=== PATIENT | female | born 1945 | race Caucasian/White ===

== ENCOUNTER 2016-11-21 08:48 | Inpatient (IN) | payer OTHER ==
[2016-11-21] MEDS ORDERED: SODIUM CHLORIDE 1,000 ML IV STA ×2 (09:23→09:52)
[2016-11-21] MEDS ORDERED: SOLU-MEDROL 125 MG IVP STA (09:36)
[2016-11-21] MEDS ORDERED: ROCEPHIN 1 GM in SODIUM CHLORIDE 50 ML IV STA (09:37)
--- NOTE | 2016-11-21 09:42 | ED.PDOC ---
General ED Provider: Dr. NITHYA VALDES JR Chief Complaint: Respiratory Complaint Stated Complaint: complains of fever, shortness of breath, cough, sore throat, congestion[End]Two weeks Diagnosed with Type B flu 11/10 99.1 65 20 89 99/61 Tamiflu has been completed. Patient has also been treated with Mucinex[End] Had fluids this AM. Hasnt eaten since yesterday afternoon Time Seen by Physician: 09:23 Mode of Arrival: Walk-In Information Source: Patient Exam Limitations: No limitations Primary Care Provider: NELSON CONTI Nursing and Triage Documentation Reviewed and Agree: No Review of Systems - Review Of Systems Constitutional: Reports: Fever, Malaise, Weakness Ears, Nose, Mouth, Throat: Reports: Throat pain Respiratory: Reports: Cough, Short of air, Other Cardiac: Reports: No symptoms GI: Reports: No symptoms : Reports: No symptoms Musculoskeletal: Reports: No symptoms Skin: Reports: No symptoms Neurological: Reports: No symptoms Endocrine: Reports: No symptoms Hematologic/Lymphatic: Reports: No symptoms All Other Systems: Other Past Medical History - Past Medical History Endocrine: Reports: Hypothyroid Cardiovascular: Reports: Hypertension, Other (mvp) Respiratory: Reports: None Hematological: Reports: None Gastrointestinal: Reports: None Genitourinary: Reports: None Neuro/Psych: Reports: None Musculoskeletal: Reports: Arthritis Cancer: Reports: None Last Menstrual Period: 1996 - Surgical History General Surgical History: Reports: Cholecystectomy ( [id number]) - Family History Family History: Reports: Unknown - Social History Smoking Status: Never smoker Hx Substance Use: No Alcohol Screening: None Physical Exam - Physical Exam Appearance: Ill-appearing Ill-appearing: Moderate Pain Distress: Moderate Eyes: TASHA, EOMI, Conjunctiva clear Neck: Supple Respiratory: Breath sounds equal, Breath sounds diminished, Crackles, Rhonchi Cardiovascular: RRR, Pulses normal, No rub, No murmur GI/: Soft, Nontender, No masses, Bowel sounds normal, No Organomegaly Musculoskeletal: Normal strength, ROM intact, No edema, No calf tenderness Skin: Warm, Dry, Normal color Neurological: Sensation intact, Motor intact, Reflexes intact, Cranial nerves intact, Alert, Oriented Psychiatric: Affect appropriate, Mood appropriate Interpretation - EKG Interpretation Time of EKG #1: 09:56 Rate: Chao Rhythm: Sinus Ectopy: None ST Segment: Other (lvh) Critical Care Note - Critical Care Note Total Time (mins): 5 Course - Course Hematology/Chemistry: 11/21/16 09:55 11/21/16 09:55 Orders, Labs, Meds: Lab Review 11/21/16 11/21/16 09:50 09:55 WBC 13.59 H RBC 4.02 L Hgb 11.5 L Hct 33.9 L MCV 84.3 MCH 28.6 MCHC 33.9 RDW Coeff of Aurelio 12.9 Plt Count 448 H Immature Gran % (Auto) 0.7 Neut % (Auto) 84.9 Lymph % (Auto) 9.3 L [place] % (Auto) 4.6 Eos % (Auto) 0.4 Baso % (Auto) 0.1 Immature Gran # (Auto) 0.1 Neut # 11.5 H Lymph # 1.3 [place] # 0.6 Eos # 0.1 Baso # 0.0 Puncture Site R rad O2 Saturation 94.0 L ABG pH 7.564 H* ABG pCO2 34.4 L ABG pO2 59.0 L* ABG HCO3 31.1 H ABG Total CO2 32 H ABG Base Excess 9 H Calvin Test + FiO2 % 21.0 Sodium 132 L Potassium 2.6 L* Chloride 88 L Carbon Dioxide 32 H Anion Gap 14.6 BUN 14 Creatinine 1.31 H Estimated GFR (MDRD) 40.00 BUN/Creatinine Ratio 10.68 Glucose 146 H Lactic Acid 14.1 Calcium 9.5 Total Bilirubin 0.96 AST 23 ALT 19 Alkaline Phosphatase 114 Total Creatine Kinase 158 CK-MB (CK-2) 0.9 CK-MB (CK-2) % 0.44862 Troponin I 0.0990 B-Natriuretic Peptide 202 H Total Protein 7.1 Albumin 2.7 L Globulin 4.4 Albumin/Globulin Ratio 0.61 Procalcitonin 0.17 Orders Category Date Time Status ABG DRAW REQUEST Stat CARDIO 11/21/16 09:24 Completed EKG-(ED ONLY) Stat CARDIO 11/21/16 09:23 Completed NEBULIZER TREATMENT Stat CARDIO 11/21/16 10:23 Completed ED APPLY O2 .ONCE EMERGENCY 11/21/16 09:23 Active ED BLADE FILER APPLIED .ONCE EMERGENCY 11/21/16 09:23 Active ED IV/MEDIPORT/POWERPORT .ONCE EMERGENCY 11/21/16 09:23 Active ABG Stat LAB 11/21/16 09:50 Completed B-TYPE NATRIURETIC PEPTIDE Stat LAB 11/21/16 09:55 Completed BLOOD CULTURE Stat LAB 11/21/16 09:55 Received CBC W/ AUTO DIFF Stat LAB 11/21/16 09:55 Completed COMPREHENSIVE METABOLIC PANEL Stat LAB 11/21/16 09:55 Completed CREATINE KINASE Stat LAB 11/21/16 09:55 Completed LACTIC ACID Stat LAB 11/21/16 09:55 Completed PROCALCITONIN Stat LAB 11/21/16 09:55 Completed TROPONIN I Stat LAB 11/21/16 09:55 Completed 0.9 % Sodium Chloride [Saline Flush] MEDS 11/21/16 09:23 Active 1 syr IVF PRN PRN Albuterol Sulfate 0.083% Neb [Albuterol 0.083% Neb] MEDS 11/21/16 10:23 Discontinued 1 vial NEB ONCE STA Ceftriaxone Sodium [Rocephin] MEDS 11/21/16 09:52 Discontinued 1 gm .ROUTE .STK-MED ONE Ceftriaxone Sodium [Rocephin] 1 gm MEDS 11/21/16 09:37 Discontinued 0.9 % Sodium Chloride [Sodium Chloride] 50 ml IV ONCE Methylprednisolone Sod Succ/Pf [Solu-Medrol 125 mg] MEDS 11/21/16 09:36 Discontinued 125 mg IVP ONCE STA Ondansetron HCl/Pf [Zofran 4 mg/2 ml] MEDS 11/21/16 10:10 Discontinued 4 mg .ROUTE .STK-MED ONE Ondansetron HCl/Pf [Zofran 4 mg/2 ml] MEDS 11/21/16 10:10 Discontinued 4 mg IVP ONCE STA Potassium Chloride [K-Dur] MEDS 11/21/16 11:38 Discontinued 40 meq PO ONCE STA Potassium Chloride in 0.9%NaCl [Sodium Chloride 0.9%- MEDS 11/21/16 11:38 Discontinued KCl 40Meq] 1,000 ml IV 250 mls/hr Sodium Chloride 0.9% [Sodium Chloride] 1,000 ml MEDS 11/21/16 09:52 Active IV 100 mls/hr CHEST, 2 VIEWS PA & LAT Stat RADS 11/21/16 10:[address] CHEST W/O CONTRAST Stat RADS 11/21/16 11:39 Completed Medications Generic Name Dose Route Start Last Admin Trade Name Freq PRN Reason Stop Dose Admin Acetaminophen 650 mg 11/21/16 13:27 Tylenol PO Q4H PRN Mild Pain Albuterol Sulfate 1 vial 11/21/16 18:00 11/21/16 17:05 Albuterol 0.083% Neb NEB 1 vial RTQ6H KAREN Administration Amlodipine Besylate 5 mg 11/22/16 09:00 Norvasc PO DAILY KAREN Atorvastatin Calcium 10 mg 11/22/16 09:00 Lipitor PO DAILY KAREN Bisoprolol Fumarate/HCTZ 1 tab 11/22/16 09:00 Ziac 5-6.25 Mg PO DAILY KAREN Colestipol HCl 1 gm 11/21/16 13:33 Colestid PO PRN PRN Diarrhea Sodium Chloride 1,000 mls @ 100 mls/hr 11/21/16 09:52 11/21/16 10:14 Sodium Chloride IV 11/21/16 19:51 100 mls/hr .Q10H STA Administration Ceftriaxone Sodium 1 gm/ 50 mls @ 75 mls/hr 11/22/16 09:00 Sodium Chloride IV DAILY KAREN Potassium Chloride/Sodium Chloride 1,000 mls @ 75 mls/hr 11/21/16 13:30 11/21 18:46 Sodium Chloride 0.9%-Kcl 20 Meq IV 75 mls/hr .[id number] KAREN Administration Azithromycin 500 mg/ Sodium 250 mls @ 125 mls/hr 11/22/16 09:00 Chloride IV DAILY KAREN Potassium Chloride 20 meq 11/21/16 14:00 11/21/16 14:06 K-Dur PO 20 meq BID KAREN Administration Sodium Chloride 1 syr 11/21/16 09:23 11/21/16 10:14 Saline Flush IVF 1 syr PRN PRN Administration To flush IV Discontinued Medications Generic Name Dose Route Start Last Admin Trade Name Freq PRN Reason Stop Dose Admin Albuterol Sulfate 1 vial 11/21/16 10:23 11/21/16 10:33 Albuterol 0.083% Neb NEB 11/21/16 10:24 1 vial ONCE STA Administration Ceftriaxone Sodium 1 gm/ 50 mls @ 75 mls/hr 11/21/16 09:37 11/21/16 10:14 Sodium Chloride IV 11/21/16 10:16 75 mls/hr ONCE STA Administration Potassium Chloride/Sodium Chloride 1,000 mls @ 250 mls/hr 11/21/16 11:38 05/30 11:59 Sodium Chloride 0.9%-Kcl 40meq IV 11/21/16 15:37 250 mls/hr .Q4H STA Administration Azithromycin 500 mg/ Sodium 250 mls @ 125 mls/hr 11/21/16 13:30 11/21/16 14: 05 Chloride IV 11/21/16 15:29 125 mls/hr ONCE STA Administration Methylprednisolone Sodium Succinate 125 mg 11/21/16 09:36 11/21/16 10:14 Solu-Medrol 125 Mg IVP 11/21/16 09:37 125 mg ONCE STA Administration Non-Formulary Medication 5 mg 11/22/16 09:00 Amlodipine/Atorvastatin [Amlodipine-Atorvast 5-10 Mg] PO DAILY KAREN Ondansetron HCl 4 mg 11/21/16 10:10 11/21/16 10:15 Zofran 4 Mg/2 Ml IVP 11/21/16 10:11 4 mg ONCE STA Administration Potassium Chloride 40 meq 11/21/16 11:38 11/21/16 11:44 K-Dur PO 11/21/16 11:39 40 meq ONCE STA Administration Vital Signs: Temp Pulse Resp BP Pulse Ox 11/21/16 08:49 99.1 F 65 20 99/61 89 L Departure - Departure Time of Disposition: 13:25 Disposition: ADMITTED INPATIENT Discharge Problem: Hypokalemia Pneumonia Qualifiers: Pneumonia type: due to unspecified organism Laterality: bilateral Lung location : lower lobe of lung Qualifier Code: (J18.9) Pneumonia, unspecified organism Condition: Good Pt referred to PMD for follow-up: Yes (admittrd) Allergies/Adverse Reactions: Allergies ibuprofen Adverse Reaction (Unverified 11/21/16 09:00) streptomycin Adverse Reaction (Unverified 11/21/16 09:00) Home Medications: Ambulatory Orders Amlodipine/Atorvastatin [Amlodipine-Atorvast 5-10 Mg] 5 mg PO DAILY 05/07/14 Valsartan/Hydrochlorothiazide [Diovan Hct 320-12.5 Mg Tab] 320 mg PO DAILY 05/07 Bisoprolol Fumarate/Hctz [Bisoprolol-Hctz 5-6.25 mg Tab] 1 each PO DAILY Colestipol HCl [Colestid] 1 gm PO PRN PRN 11/21/16
[2016-11-21] MEDS ORDERED: ROCEPHIN ONE (09:52)
[2016-11-21 09:57] LABS: ABG PCO2 34.4 mmHg (35-45); ABG PH 7.564 (7.35-7.45)
[2016-11-21 09:58] LABS: ABG BASE EXCESS 9 (-2.0-2.0); ABG HCO3 31.1 (22.0-26.0); ABG TCO2 32 (22.0-28.0)
[2016-11-21 10:04] LABS: BASOPHILS % (AUTO) 0.1 % (0.0-3.0); EOSINOPHILS # (AUTO) 0.1 K/ul (0.0-0.7); EOSINOPHILS % (AUTO) 0.4 % (0.0-7.0); HEMATOCRIT 33.9 % (37.0-47.0); HEMOGLOBIN 11.5 g/dl (12.0-16.0); IMMATURE GRANULOCYTE % (AUTO) 0.7 % (0.0-5.0); LYMPHOCYTES # (AUTO) 1.3 K/uL (0.60-3.4); LYMPHOCYTES % (AUTO) 9.3 (10.0-50.0); MEAN CORPUSCULAR HEMOGLOBIN 28.6 pg (27.0-31.0); MEAN CORPUSCULAR HGB CONC 33.9 (31.8-35.4); MEAN CORPUSCULAR VOLUME 84.3 fl (81.0-99.0); MONOCYTES # (AUTO) 0.6 K/uL (0.4-2.0); MONOCYTES % (AUTO) 4.6 (0-10); NEUTROPHILS # (AUTO) 11.5 K/ul (2.0-6.9); NEUTROPHILS % (AUTO) 84.9; PLATELET COUNT 448 10^3/uL (140-440); RED BLOOD COUNT 4.02 10^6/ul (4.20-5.40); WHITE BLOOD COUNT 13.59 K/ul (4.6-10.2)
[2016-11-21] MEDS ORDERED: ZOFRAN 4 MG/2 ML ONE (10:10)
[2016-11-21] MEDS ORDERED: ZOFRAN 4 MG/2 ML IVP STA (10:10)
[2016-11-21] MEDS ORDERED: ALBUTEROL 0.083% NEB NEB STA (10:23)
[2016-11-21 10:42] LABS: ALBUMIN 2.7 g/dL (3.4-5.0); ALBUMIN/GLOBULIN RATIO 0.61; ANION GAP 14.6; BILIRUBIN,TOTAL 0.96 mg/dL (0.00-1.20); BUN/CREATININE RATIO 10.68; CALCIUM 9.5 mg/dL (8.2-10.2); CREATININE 1.31 mg/dL (0.60-1.30); TOTAL PROTEIN 7.1 g/dL (5.8-8.1); TROPONIN I 0.099 ng/ml (0.0000-0.4000)
[2016-11-21 10:44] LABS: POTASSIUM 2.6 mmol/L (3.5-5.10)
--- NOTE | 2016-11-21 10:49 | DI ---
EXAM: Two views of the chest. History: Cough. Findings: Heart size is borderline enlarged. Atherosclerotic vascular calcifications. Retrocardia c left lower lobe subsegmental atelectasis or infiltrate. No definite pleural fluid and no pneumoth orax. Calcified granuloma seen within the left lower lobe. Old left-sided rib fractures. Degenera tive changes of the spine. Impression: Retrocardiac left lower lobe subsegmental atelectasis or infiltrate.
[2016-11-21 10:59] LABS: CREATINE KINASE MB 0.9 ng/ml (0.0-3.6)
[2016-11-21] MEDS ORDERED: SODIUM CHLORIDE 0.9%-KCL 40MEQ 1,000 ML IV STA (11:38)
[2016-11-21] MEDS ORDERED: K-DUR PO STA (11:38)
--- NOTE | 2016-11-21 12:19 | CT ---
EXAM: CT THORAX HISTORY: Cough, concern for pneumonia. TECHNIQUE: CT thorax without intravenous contrast. 5-mm axial sections. Coronal and sagittal re-fo rmations. FINDINGS: Compared to 11/23/2009. Normal heart size. No pericardial effusion. Evaluation of the mediastinum and hilar structures is limited without the administration of intravenous contrast. There are a few mediastinal and hilar l ymph nodes suggested probably stable since prior exam and measuring less than a centimeter short axi s. These are nonspecific. There are mild to moderate bilateral lung bases consolidations. Possible trace left pleural fluid. A small area of pleural thickening lateral mid left lung adjacent to previous healed rib fracture l ikely related to scarring. Lungs otherwise unremarkable. No vascular congestion or pneumothorax. The bones reveal bulky bridging osteophytic spurring of the thoracic spine. There is a small hiatal hernia which is stable. IMPRESSION: 1. Mild to moderate bilateral airspace consolidations consistent with atelectasis and possible pneu monia. Trace left pleural effusion. 2. Small hiatal hernia. 3. A few nonspecific mediastinal and hilar lymph nodes.
[2016-11-21] MEDS ORDERED: TYLENOL PO PRN (13:27)
[2016-11-21] MEDS ORDERED: ZITHROMAX 500 MG in SODIUM CHLORIDE 250 ML IV STA (13:30)
[2016-11-21] MEDS ORDERED: COLESTID PO PRN (13:33)
[2016-11-21] MEDS: K-DUR PO SCH ×2 (14:06→20:14)
[2016-11-21 14:09] LABS: FLU INTERNAL QC INTERNAL QC VALID; RAPID FLU A NEGATIVE (NEGATIVE); RAPID FLU B NEGATIVE (NEGATIVE)
[2016-11-21 14:23] VITALS: BMI 30.8
[2016-11-21] MEDS: ALBUTEROL 0.083% NEB NEB SCH ×2 (17:05→23:08)
[2016-11-21] MEDS: SODIUM CHLORIDE 0.9%-KCL 20 MEQ 1,000 ML IV SCH (18:46)
[2016-11-21 20:08] LABS: TROPONIN I 0.038 ng/ml (0.0000-0.4000)
[2016-11-21 20:09] LABS: CREATINE KINASE MB 1.1 ng/ml (0.0-3.6)
[2016-11-22 04:39] LABS: BASOPHILS % (AUTO) 0.2 % (0.0-3.0); HEMATOCRIT 29.4 % (37.0-47.0); HEMOGLOBIN 9.9 g/dl (12.0-16.0); LYMPHOCYTES # (AUTO) 0.8 K/uL (0.60-3.4); LYMPHOCYTES % (AUTO) 4.4 (10.0-50.0); MEAN CORPUSCULAR HEMOGLOBIN 28.8 pg (27.0-31.0); MEAN CORPUSCULAR HGB CONC 33.7 (31.8-35.4); MEAN CORPUSCULAR VOLUME 85.5 fl (81.0-99.0); MONOCYTES # (AUTO) 0.4 K/uL (0.4-2.0); MONOCYTES % (AUTO) 2.4 (0-10); NEUTROPHILS # (AUTO) 16.8 K/ul (2.0-6.9); PLATELET COUNT 395 10^3/uL (140-440); RED BLOOD COUNT 3.44 10^6/ul (4.20-5.40); WHITE BLOOD COUNT 18.25 K/ul (4.6-10.2)
[2016-11-22 05:10] LABS: ALBUMIN 2.4 g/dL (3.4-5.0); ALBUMIN/GLOBULIN RATIO 0.62; ANION GAP 11.6; BILIRUBIN,TOTAL 0.32 mg/dL (0.00-1.20); BUN/CREATININE RATIO 17.02; CALCIUM 8.5 mg/dL (8.2-10.2); CREATININE 1.41 mg/dL (0.60-1.30); POTASSIUM 3.6 mmol/L (3.5-5.10); TOTAL PROTEIN 6.3 g/dL (5.8-8.1)
[2016-11-22 05:18] LABS: TROPONIN I 0.012 ng/ml (0.0000-0.4000)
[2016-11-22] MEDS: ALBUTEROL 0.083% NEB NEB SCH ×4 (05:40→23:21)
[2016-11-22] MEDS: SODIUM CHLORIDE 0.9%-KCL 20 MEQ 1,000 ML IV SCH (06:57)
[2016-11-22] MEDS ORDERED: SODIUM CHLORIDE 0.9%-KCL 20 MEQ 1,000 ML IV SCH (08:02)
[2016-11-22] MEDS: LIPITOR PO SCH (08:21)
[2016-11-22] MEDS: NORVASC PO SCH (08:22)
[2016-11-22] MEDS: K-DUR PO SCH (08:22)
[2016-11-22] MEDS: ZITHROMAX 500 MG in SODIUM CHLORIDE 250 ML IV SCH (08:22)
[2016-11-22] MEDS ORDERED: ZIAC 5-6.25 MG PO SCH (09:00)
[2016-11-22] MEDS ORDERED: ATORVASTATIN PO SCH (09:00)
[2016-11-22] MEDS ORDERED: AMLODIPINE PO SCH (09:00)
[2016-11-22] MEDS: ROCEPHIN 1 GM in SODIUM CHLORIDE 50 ML IV SCH (10:16)
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
[2016-11-22] MEDS: SODIUM CHLORIDE 1,000 ML IV SCH (17:50)
[2016-11-23 04:47] LABS: BASOPHILS % (AUTO) 0.2 % (0.0-3.0); EOSINOPHILS # (AUTO) 0.1 K/ul (0.0-0.7); EOSINOPHILS % (AUTO) 1.2 % (0.0-7.0); HEMATOCRIT 29.3 % (37.0-47.0); HEMOGLOBIN 9.6 g/dl (12.0-16.0); IMMATURE GRANULOCYTE % (AUTO) 0.6 % (0.0-5.0); LYMPHOCYTES # (AUTO) 2.2 K/uL (0.60-3.4); LYMPHOCYTES % (AUTO) 20.5 (10.0-50.0); MEAN CORPUSCULAR HEMOGLOBIN 28.6 pg (27.0-31.0); MEAN CORPUSCULAR HGB CONC 32.8 (31.8-35.4); MEAN CORPUSCULAR VOLUME 87.2 fl (81.0-99.0); MONOCYTES # (AUTO) 0.5 K/uL (0.4-2.0); MONOCYTES % (AUTO) 4.7 (0-10); NEUTROPHILS # (AUTO) 7.9 K/ul (2.0-6.9); NEUTROPHILS % (AUTO) 72.8; PLATELET COUNT 379 10^3/uL (140-440); RED BLOOD COUNT 3.36 10^6/ul (4.20-5.40); WHITE BLOOD COUNT 10.88 K/ul (4.6-10.2)
[2016-11-23 05:10] LABS: ALBUMIN 2.4 g/dL (3.4-5.0); ALBUMIN/GLOBULIN RATIO 0.71; ANION GAP 10.8; BILIRUBIN,TOTAL 0.22 mg/dL (0.00-1.20); BUN/CREATININE RATIO 18.81; CALCIUM 8.8 mg/dL (8.2-10.2); CREATININE 1.01 mg/dL (0.60-1.30); POTASSIUM 3.8 mmol/L (3.5-5.10); TOTAL PROTEIN 5.8 g/dL (5.8-8.1)
[2016-11-23] MEDS: ALBUTEROL 0.083% NEB NEB SCH ×4 (05:16→23:16)
[2016-11-23] MEDS: LIPITOR PO SCH (08:26)
[2016-11-23] MEDS: ROCEPHIN 1 GM in SODIUM CHLORIDE 50 ML IV SCH (08:26)
[2016-11-23] MEDS: NORVASC PO SCH (08:26)
[2016-11-23] MEDS: SODIUM CHLORIDE 1,000 ML IV SCH (08:30)
--- NOTE | 2016-11-23 09:19 | PN ---
DATE OF SERVICE: 11/22/16 SUBJECTIVE: The patient was admitted with several days of cough, malaise and fatigue through the ER with a diagnosis of pneumonia. She was seen in the office on and was positive for Influenza B. She already feels less cough, shortness of breath and fatigue. She is eating some with looser than average stools but no significant diarrhea. She is tired enough that she is not sure whether she is going to be able to go home as she does not have any close family in order to provide her care. OBJECTIVE: V/S: Temperature 97.2, pulse 63, BP 107/58, respirations 18; these are all consistent patterns. GENERAL: No obvious distress CHEST: Diminished but clear. CARDIOVASCULAR: S1, S2 regular without edema. LABS/X-RAYS: White count 18 vs 13.5 admission; hemoglobin 9.9 versus 11.5 and chemistries show sodium 130, BUN 24, creatinine 1.41, GFR 37, glucose 211. ASSESSMENT: # LEFT LOWER LOBE ATELECTASIS VERSUS INFILTRATE; COULD BE CONSISTENT WITH PNEUMONIA # RECENT INFLUENZA B # ANOREXIA # HYPOPOTASSEMIA - 2.6 - INFLUENCED BY ZIAC # ACUTE RENAL INJURY/INSUFFICIENCY # HYPERGLYCEMIA - STEROID RELATED PLAN: 1. Continue fluids and watch renal function 2. Labs daily in order to accomplish this 3. Temporarily stop Ziac 4. We did discuss discharge planning which could end up being swing bed MTDD
[2016-11-23] MEDS: ZITHROMAX 500 MG in SODIUM CHLORIDE 250 ML IV SCH (09:48)
--- NOTE | 2016-11-23 13:45 | RS.PTINEVL ---
Subjective - Patient information Date of Evaluation: 11/23/16 Date of Arrival on Unit: 11/21/16 Usual Living Arrangement: Alone Living Arrangement Comments: Son lives across the street. Home Environment: House Medical History: Hypertension Medical History Comments:: mitral valve prolapse, chronic diarrhea Surgical History: Cholecystectomy Subjective Information/ Patient Comments:: Patient reports she was gotten weak since being sick. She is worried about being able to take care of herself when she gets home. States she is slow with walking and can't always get to the bathroom in time. States she doesn't know if she will be able to keep herself clean. States she has had no history of falls. She does not use an assistive device. States she has been up to the bathroom with the IV pole by herself. - Level of function Prior to this admission, the patient could do the following:: Independent Selfcare, Independent ADL's, Independent Ambulation, Perform Credit Authorizer/ Cooking, Drive, Participated in Social Activities Outside home Current Equipment Used at Home: None Interventions - Objective Patient Orientation: Person, Place, Time, Situation Current Interventions: IV's, Oxygen Range of Motion - ROM Right Upper Extremity AROM: WFL's Left Upper Extremity AROM: WFL's Right Lower Extremity AROM: WFL's Left Lower Extremity AROM: WFL's Muscle Strength - Muscle Strength Right Lower Extremity Strength: Mild Weakness Left Lower Extremity Strength: Mild Weakness Sensation - Sensation Right Lower Extremity Sensation: Intact/Normal Left Lower Extremity Sensation: Intact/Normal Balance - Sitting Balance and Reactions Static Sitting Balance: Normal Dynamic Sitting Balance: Normal - Standing Balance and Reactions Static Standing Balance: Good Dynamic Standing Balance: Good Functional Mobility - Transfers Sit to Stand: Supervision, 1 person assist Stand to Sit: Supervision, 1 person assist Stand Pivot Transfers: Supervision, 1 person assist Comments:: No hands on assistance needed for transfers. - Safety Awareness Safety Awareness: Good Ambulation - Ambulation Weight Bearing Status: FWB Assistive Device Used: No Assistive Device Distance: 2 laps in room due to oxygen tubing Assistance needed with Ambulation: Supervision Quality of Ambulation: Patient demonstrates narrow REMY and states this is due to being cautious with gait. Exhibits a steady gait, clears both feet consistently. Demonstrates no loss of balance and voices no dizziness while changing directions. Factors Affecting Ambulation: Breathing/O2 Saturation, Limited Endurance Treatment time - Time with patient Total treatment time: 16 (mins) Patient Education - Education Comments: Discussed our Swing Bed program and that she would be more of a candidate for going home with Home Health due to her high level of function. Assessment - Assessment Further Therapy Indicated?: No Comments: Patient does not demonstrate to need skilled care in this acute setting. She also appears to be more appropriate to go home with Home Health, rather than being a candidate for Swing Bed. I do recommend she continue to ambulate with nursing if needed for help with oxygen and IV pole, to maintain her level of function. She does not appear to need an assistive device at this time. Plan Duration of Treatment: One Time Treatment Anticipated Discharge Destination: Home
[2016-11-24] MEDS: ALBUTEROL 0.083% NEB NEB SCH ×2 (05:22→11:22)
[2016-11-24 05:43] LABS: BASOPHILS % (AUTO) 0.2 % (0.0-3.0); EOSINOPHILS # (AUTO) 0.2 K/ul (0.0-0.7); EOSINOPHILS % (AUTO) 2.8 % (0.0-7.0); HEMATOCRIT 28.7 % (37.0-47.0); HEMOGLOBIN 9.1 g/dl (12.0-16.0); IMMATURE GRANULOCYTE % (AUTO) 0.5 % (0.0-5.0); LYMPHOCYTES # (AUTO) 1.8 K/uL (0.60-3.4); LYMPHOCYTES % (AUTO) 20.7 (10.0-50.0); MEAN CORPUSCULAR HEMOGLOBIN 28.3 pg (27.0-31.0); MEAN CORPUSCULAR HGB CONC 31.7 (31.8-35.4); MEAN CORPUSCULAR VOLUME 89.4 fl (81.0-99.0); MONOCYTES # (AUTO) 0.5 K/uL (0.4-2.0); MONOCYTES % (AUTO) 5.3 (0-10); NEUTROPHILS # (AUTO) 6.1 K/ul (2.0-6.9); NEUTROPHILS % (AUTO) 70.5; PLATELET COUNT 390 10^3/uL (140-440); RED BLOOD COUNT 3.21 10^6/ul (4.20-5.40)
[2016-11-24 06:04] LABS: ALANINE AMINOTRANSFERASE 18 U/L (12-78); ALBUMIN 2.4 g/dL (3.4-5.0); ALBUMIN/GLOBULIN RATIO 0.73; ALKALINE PHOSPHATASE 69 U/L (53-141); ANION GAP 10.6; ASPARTATE AMINO TRANSFERASE 20 U/L (15-37); BLOOD UREA NITROGEN 14 mg/dL (7-18); BUN/CREATININE RATIO 15.55; CALCIUM 9.1 mg/dL (8.2-10.2); CARBON DIOXIDE 30 mmol/L (23-31); CHLORIDE 102 mmol/L (98-107); GLUCOSE 112 mg/dL (82-115); POTASSIUM 4.6 mmol/L (3.5-5.10); SODIUM 138 mmol/L (136-145); TOTAL PROTEIN 5.7 g/dL (5.8-8.1)
[2016-11-24 06:06] LABS: BILIRUBIN,TOTAL < 0.10 mg/dL (0.00-1.20)
[2016-11-24] MEDS: NORVASC PO SCH (08:49)
[2016-11-24] MEDS: LIPITOR PO SCH (08:49)
[2016-11-24] MEDS: ROCEPHIN 1 GM in SODIUM CHLORIDE 50 ML IV SCH (08:50)
--- NOTE | 2016-11-24 09:28 | PN ---
DATE OF SERVICE: 11/23/16 CHIEF COMPLAINT: "I am weak." SUBJECTIVE: Admitted 11/21; onset 10/08/16 with symptoms with diagnosis on the in the office with Influenza B. She continued with wheeze, cough and others; she developed progressive malaise, anorexia and was to the point of not eating or drinking well. Chest x-ray in the ER showed left lower lobe infiltrate. Potassium was 2.6 and GFR was in the 30s; all abnormal for her. She does use Ziac 5/6.25 once a day. Since admission and slow fluids she has gradually had resolution and improvement in her lab findings; she is urinating frequently. Her appetite is better. She is eating. Attempting with PT for the first time today to walk. She can only go to the restroom door; became very weak in her legs and had to be taken back to her chair. She denies back pain or numbness of the lower extremities. She lives alone. There is no active family member that can stay with her. OBJECTIVE: V/S: Temperature 97.4, pulse 60, respirations 18, BP 134/74; all of these are stable patterns. CHEST: Diminished but clear. CARDIOVASCULAR: Regular with trace edema in both ankle areas, mildly pitting. GI: Soft, overweight. MUSCULOSKELETAL/NEUROLOGIC: She moves four quadrants equal with no active fasciculations or tremors. LABS/X-RAYS: White count 10, hemoglobin 9.6 down from 9.2/11.5. Chemistries show resolved hyponatremia at 138, resolved hypopotassemia at 3.8 and GFR up to 54 from 37. ASSESSMENT: # Pneumonia, left lower lobe; post influenza # Recent influenza B # Anorexia - improving # Hypopotassemia 3.6 influenced by Ziac - resolved # Hyponatremia - same # Acute renal injury - insufficiency - resolving # Gait decline; influenced by all of the above # Anemia - somewhat influenced by hydration and recent illness without signs of bleeding PLAN: 1. Wean IV to saline lock 2. Follow labs at least another day 3. Continue therapy to hopefully improve strength for discharge abilities 4. Discharge planning from the onset was home; but it looks like she is going to have to transition to the swing bed program and we will attempt to arrange that tomorrow 5. Continue same medications 6. Repeat chest x-ray at some point MTDD
[2016-11-24 10:10] VITALS: BP 134/63; TEMP 98
[2016-11-24] MEDS: ZITHROMAX 500 MG in SODIUM CHLORIDE 250 ML IV SCH (10:30)
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
== END 2016-11-24 13:04 | disposition swing bed (61) | DRG 194 ==
LOC: ED 08:48 → MEDSURG B 12:58
PROVIDERS: ADMIT Family Medicine; ATTEND Family Medicine
DX: J18.9 Pneumonia, unspecified organism (principal); E87.1 Hypo-osmolality and hyponatremia; N17.9 Acute kidney failure, unspecified; E87.6 Hypokalemia; R06.02 Shortness of breath; E86.0 Dehydration; N28.9 Disorder of kidney and ureter, unspecified; R26.89 Other abnormalities of gait and mobility; R63.0 Anorexia; D64.9 Anemia, unspecified; Z86.19 Personal history of other infectious and parasitic diseases; Z79.899 Other long term (current) drug therapy
CPT/HCPCS: 36415; 80053; 82550; 82553; 82803; 83605; 83880; 84145; 84484; 85025; 87040; 87804; 93005; 93010; 94640; 96361; 96365; 96375; 99284

== ENCOUNTER 2016-11-24 13:28 | Inpatient (IN) | payer OTHER ==
[2016-11-24] MEDS ORDERED: COLESTID PO PRN (13:38)
[2016-11-24 14:25] VITALS: BMI 30.7
[2016-11-24] MEDS: ALBUTEROL 0.083% NEB NEB SCH ×2 (17:56→22:20)
--- NOTE | 2016-11-24 22:40 | DI ---
EXAM: Two-view chest HISTORY: Follow up pneumonia COMPARISON: Two-view chest 11/21/2016 FINDINGS: The heart is top normal in size. Atherosclerotic changes are seen involving the aortic ar ch.. There is improving left lower lobe pneumonia. The right lung is clear. IMPRESSION: Improving left lower lobe pneumonia.
[2016-11-25] MEDS: ALBUTEROL 0.083% NEB NEB SCH ×4 (05:03→23:23)
[2016-11-25] MEDS ORDERED: COLESTID PO PRN (07:02)
[2016-11-25] MEDS: NORVASC PO SCH (08:32)
[2016-11-25] MEDS: LIPITOR PO SCH (08:32)
[2016-11-25] MEDS ORDERED: AMLODIPINE PO SCH (09:00)
[2016-11-25] MEDS ORDERED: ATORVASTATIN PO SCH (09:00)
[2016-11-25] MEDS ORDERED: ZITHROMAX 250 MG in SODIUM CHLORIDE 250 ML IV SCH (09:00)
[2016-11-25] MEDS: ROCEPHIN 1 GM in SODIUM CHLORIDE 50 ML IV SCH (09:03)
[2016-11-25] MEDS: ZITHROMAX 500 MG in SODIUM CHLORIDE 250 ML IV SCH (10:00)
[2016-11-26] MEDS: ALBUTEROL 0.083% NEB NEB SCH ×4 (05:19→23:54)
[2016-11-26] MEDS: NORVASC PO SCH (08:32)
[2016-11-26] MEDS: ROCEPHIN 1 GM in SODIUM CHLORIDE 50 ML IV SCH (08:32)
[2016-11-26] MEDS: LIPITOR PO SCH (08:32)
[2016-11-26] MEDS: ZITHROMAX 500 MG in SODIUM CHLORIDE 250 ML IV SCH (09:24)
[2016-11-26] MEDS: TYLENOL PO PRN (20:22)
[2016-11-27 04:53] LABS: BASOPHILS % (AUTO) 0.3 % (0.0-3.0); EOSINOPHILS # (AUTO) 0.3 K/ul (0.0-0.7); EOSINOPHILS % (AUTO) 4.8 % (0.0-7.0); HEMATOCRIT 29.7 % (37.0-47.0); HEMOGLOBIN 9.4 g/dl (12.0-16.0); IMMATURE GRANULOCYTE % (AUTO) 0.3 % (0.0-5.0); LYMPHOCYTES % (AUTO) 29.6 (10.0-50.0); MEAN CORPUSCULAR HEMOGLOBIN 28.5 pg (27.0-31.0); MEAN CORPUSCULAR HGB CONC 31.6 (31.8-35.4); MONOCYTES # (AUTO) 0.4 K/uL (0.4-2.0); NEUTROPHILS # (AUTO) 4.1 K/ul (2.0-6.9); PLATELET COUNT 369 10^3/uL (140-440); WHITE BLOOD COUNT 6.89 K/ul (4.6-10.2)
[2016-11-27] MEDS: ALBUTEROL 0.083% NEB NEB SCH ×4 (05:10→23:13)
[2016-11-27 05:55] LABS: FOLATE 10.9 ng/mL (3.1-20.5)
[2016-11-27] MEDS: LIPITOR PO SCH (08:29)
[2016-11-27] MEDS: NORVASC PO SCH (08:30)
[2016-11-27] MEDS: ROCEPHIN 1 GM in SODIUM CHLORIDE 50 ML IV SCH (08:30)
[2016-11-28] MEDS: ALBUTEROL 0.083% NEB NEB SCH ×4 (05:20→23:19)
[2016-11-28] MEDS: ROCEPHIN 1 GM in SODIUM CHLORIDE 50 ML IV SCH (08:47)
[2016-11-28] MEDS: TYLENOL PO PRN ×2 (08:47→20:37)
[2016-11-28] MEDS: NORVASC PO SCH (08:47)
[2016-11-28] MEDS: FERROUS SULFATE PO SCH (08:48)
[2016-11-28] MEDS: LIPITOR PO SCH (08:48)
[2016-11-28 19:27] LABS: OCCULT BLOOD INTERNAL QC 1 INTERNAL QC VALID; OCCULT BLOOD SAMPLE 1 NEGATIVE (NEGATIVE)
[2016-11-29 01:01] LABS: OCCULT BLOOD INTERNAL QC 2 INTERNAL QC VALID; OCCULT BLOOD INTERNAL QC 3 INTERNAL QC VALID; OCCULT BLOOD SAMPLE 2 NO SPECIMEN RECEIVED (NEGATIVE); OCCULT BLOOD SAMPLE 3 NO SPECIMEN RECEIVED (NEGATIVE)
[2016-11-29] MEDS: TYLENOL PO PRN ×4 (03:40→23:31)
[2016-11-29] MEDS: ALBUTEROL 0.083% NEB NEB SCH ×4 (05:08→23:17)
[2016-11-29] MEDS: FERROUS SULFATE PO SCH (09:40)
[2016-11-29] MEDS: NORVASC PO SCH (09:41)
[2016-11-29] MEDS: ROCEPHIN 1 GM in SODIUM CHLORIDE 50 ML IV SCH (09:42)
[2016-11-29] MEDS: LIPITOR PO SCH (09:43)
[2016-11-30] MEDS: TYLENOL PO PRN ×2 (03:23→20:45)
[2016-11-30] MEDS: ALBUTEROL 0.083% NEB NEB SCH ×4 (05:20→23:03)
[2016-11-30] MEDS: ROCEPHIN 1 GM in SODIUM CHLORIDE 50 ML IV SCH (08:17)
[2016-11-30] MEDS: FERROUS SULFATE PO SCH (08:18)
[2016-11-30] MEDS: NORVASC PO SCH (08:18)
[2016-11-30] MEDS: LIPITOR PO SCH (08:18)
[2016-12-01 04:54] LABS: BASOPHILS % (AUTO) 0.5 % (0.0-3.0); EOSINOPHILS # (AUTO) 0.2 K/ul (0.0-0.7); EOSINOPHILS % (AUTO) 2.3 % (0.0-7.0); IMMATURE GRANULOCYTE % (AUTO) 0.3 % (0.0-5.0); LYMPHOCYTES # (AUTO) 1.9 K/uL (0.60-3.4); LYMPHOCYTES % (AUTO) 26.3 (10.0-50.0); MEAN CORPUSCULAR HEMOGLOBIN 28.5 pg (27.0-31.0); MEAN CORPUSCULAR HGB CONC 32.1 (31.8-35.4); MEAN CORPUSCULAR VOLUME 88.6 fl (81.0-99.0); MONOCYTES # (AUTO) 0.6 K/uL (0.4-2.0); MONOCYTES % (AUTO) 7.7 (0-10); NEUTROPHILS # (AUTO) 4.6 K/ul (2.0-6.9); NEUTROPHILS % (AUTO) 62.9; PLATELET COUNT 343 10^3/uL (140-440); RED BLOOD COUNT 3.16 10^6/ul (4.20-5.40); WHITE BLOOD COUNT 7.38 K/ul (4.6-10.2)
[2016-12-01] MEDS: ALBUTEROL 0.083% NEB NEB SCH ×3 (05:10→17:10)
[2016-12-01 05:18] LABS: BUN/CREATININE RATIO 11.23; CALCIUM 9.6 mg/dL (8.2-10.2); CREATININE 0.89 mg/dL (0.60-1.30)
[2016-12-01] MEDS: LIPITOR PO SCH (08:22)
[2016-12-01] MEDS: NORVASC PO SCH (08:22)
[2016-12-01] MEDS: FERROUS SULFATE PO SCH (08:22)
[2016-12-01] MEDS: TYLENOL PO PRN (08:25)
--- NOTE | 2016-12-01 09:18 | PN ---
DATE OF SERVICE: 11/25/16 SUBJECTIVE: She was transitioned to the swing bed after acute stay for pneumonia; pneumonia that followed previous influenza B. She showed improvement with complete defervescence and less cough but remained with a degree of fatigue, diminished gait abilities and it was therefore felt that she would be better served by skilled care. She chose to stay here at the swing bed. V/S: Temperature 97, pulse 80, respirations 18, BP 156/67. GENERAL: No obvious distress. CHEST: Slightly kyphotic, diminished at the base but no active wheeze. CARDIOVASCULAR: Regular, no peripheral edema. PSYCHIATRIC: Alert, oriented times three. NEUROLOGIC: Equal electronics mechanic. LABS/X-RAYS: Chest x-ray today shows some improvement. ASSESSMENT: # Gait decline - acute # Diffuse fatigue # Pneumonia - community exposed/post influenza # Anemia without signs of bleeding PLAN: 1. Check Substrates later in the weekend 2. Medications reviewed - continue same 3. Labs - as mentioned 4. Increase physical activity over the weekend by nursing staff and then next week back to therapy 5. Discharge planning remains home at the end of this swing bed admission MARIN
--- NOTE | 2016-12-01 09:25 | PN ---
DATE OF SERVICE: 11/27/16 CHIEF COMPLAINT: "I am getting better." CHIEF COMPLAINT: She was admitted to acute care with pneumonia; following flu. With nebulized bronchodilators and antibiotics she improved but continued to be weak and diminished in her gait and was uncertain if she could care for herself at home; she lives alone. For this reason she was admitted to the swing bed program. She also had developed an anemia. She has seen no melena or hematochezia and had quite a bit of venipuncture and fluids. We were watching that. She is having less chest discomfort, slept better last night, is eating good and has actually done some walking in the room at a slower than usual pace for her. Again, no melena, hematochezia. OBJECTIVE: V/S: Temperature 97.3, pulse 61, BP 140/86, respirations 18. GENERAL: No acute distress. CHEST: Clear, slightly kyphotic. CARDIOVASCULAR: Regular without murmur and trace ankle edema. GI: No rebound, guarding, mass or tenderness. NEUROLOGIC: Alert, oriented times three and pleasant. LABS/X-RAYS: Hemoglobin up to 9.4, iron is low, B12 is normal but low normal. ASSESSMENT: # LEFT LOWER LOBE INFILTRATE/PNEUMONIA - COMMUNITY ACQUIRED - POST INFLUENZA AND IMPROVING # RECENT INFLUENZA # ANOREXIA - IMPROVING # ACUTE RENAL INSUFFICIENCY - IMPROVING # DEHYDRATION - RESOLVED # HYPOPOTASSEMIA - INFLUENCED BY ZIAC - RESOLVED # GAIT DECLINE - ACUTE ON CHRONIC ISSUES WITH GENERALIZED FATIGUE # ANEMIA - INFLUENCED BY ACUTE ILLNESS, VENIPUNCTURE NOW IRON DEFICIENCY # IRON DEFICIENCY # LOW NORMAL B12 PLAN: 1. We are adding empiric oral B12 2. P.O. iron watching H & H; will check hemoccults also 3. Continue with PT and nursing support 4. Medications reviewed - same 5. Labs reviewed - later in the week, will recheck H & H MTDD
--- NOTE | 2016-12-01 09:35 | PN ---
DATE OF SERVICE: 11/30/16 CHIEF COMPLAINT: "I am trying to get stronger." SUBJECTIVE: She is placed in swing bed after acute stay for pneumonia following recent influenza. She was weak and thought that living alone the swing bed would be useful. She has found herself stronger, walking a little better. She has less cough and is eating well with stooling and no diarrhea. She had one emesis today but no pattern of nausea, abdominal pain and she is not sure what caused it. She prefers to wear oxygen though her sats are normal. OBJECTIVE: V/S: Temperature 97.1, pulse 64, respirations 20, BP 120/67. This pattern remains stable. No recent labs. GENERAL: No acute distress. CHEST: Slightly kyphotic, clear. CARDIOVASCULAR: Regular without murmur. GI: Nontender. ASSESSMENT: # Pneumonia, left lower lobe # Gait decline - acute (disconditioning) # Chest pain - related to cough and above, resolved # Hypotassemia - 2.6 and resolved # Iron deficiency - replacing # Anemia - associated with iron deficiency PLAN: 1. We are going to check an overnight oxygen study. 2. Stop Rocephin. 3. Check BMP, CBC and iron in the morning. 4. We talked somewhat about possible discharge in 2 days - i.e. on Monday before the weekend. MARIN
[2016-12-01] MEDS ORDERED: INFED 1,000 MG in SODIUM CHLORIDE 500 ML IV STA (10:51)
[2016-12-01] MEDS ORDERED: INFED IVP STA (10:57)
[2016-12-01 17:28] VITALS: BP 138/59; TEMP 98.2
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
== END 2016-12-01 18:55 | disposition home or self-care (01) | DRG 195 ==
LOC: MEDSURG B 13:28
PROVIDERS: ADMIT Family Medicine; ATTEND Family Medicine
DX: J18.1 Lobar pneumonia, unspecified organism (principal); R63.0 Anorexia; N28.9 Disorder of kidney and ureter, unspecified; E87.6 Hypokalemia; E86.0 Dehydration; D64.9 Anemia, unspecified; E61.1 Iron deficiency; E53.8 Deficiency of other specified B group vitamins; R26.89 Other abnormalities of gait and mobility; R05 Cough; Z86.19 Personal history of other infectious and parasitic diseases; Z79.899 Other long term (current) drug therapy
CPT/HCPCS: 36415; 80048; 82272; 82607; 82746; 83540; 85025; 94640; 97802

== ENCOUNTER 2017-01-08 09:15 | Emergency (ER) ==
[2017-01-08 09:26] VITALS: BP 142/65; TEMP 97.4
[2017-01-08] MEDS: MORPHINE 4 MG/ML SYRINGE IM STA (09:41)
[2017-01-08] MEDS: ZOFRAN 4 MG/2 ML IM STA (09:43)
--- NOTE | 2017-01-08 10:25 | DI ---
EXAM: Right shoulder three view HISTORY: Fall COMPARISON: None FINDINGS: There is a mildly displaced fracture of the proximal humeral neck with an associated disp laced fracture of the greater tuberosity region. No dislocation. Degenerative calcification about the acromioclavicular joint IMPERSSION: Mildly displaced fracture of the proximal humeral neck with an associated displaced fr acture of the greater tuberosity region. Report faxed at time of dictation.
--- NOTE | 2017-01-08 10:28 | DI ---
EXAM: Right knee four views HISTORY: Fall COMPARISON: None FINDINGS: No fracture or dislocation. Small tricompartmental osteophytes. Medial, lateral compar tment normal in height. Mild narrowing patellofemoral compartment. No joint effusion. Quadriceps a nd patellar tendon enthesopathy. Chondrocalcinosis lateral compartment and possibly medial compartme nt. Mild atherosclerotic vascular calcification. IMPERSSION: 1. No fracture or dislocation. 2. Mild osteoarthritis chondrocalcinosis.
--- NOTE | 2017-01-08 10:29 | DI ---
EXAM: Right humerus two-view HISTORY: Fall COMPARISON: None TECHNIQUE: Two views right humerus were performed FINDINGS/IMPRESSION: There is a fracture of the proximal humeral neck and involving the greater tub erosity that is better visualized on corresponding radiograph shoulder. No dislocation. No focal s oft tissue abnormality.
--- NOTE | 2017-01-08 10:43 | ED.PDOC ---
General ED Provider: Dr. LUPE NIX Chief Complaint: Fall Stated Complaint: fall Time Seen by Physician: 09:17 (feel 1 hr ago no neck pain) Mode of Arrival: Wheelchair Information Source: Patient Exam Limitations: No limitations Primary Care Provider: NELSON CONTI Nursing and Triage Documentation Reviewed and Agree: Yes (injury limited to right shoulder and right knee denied other pain ) Trauma/Injury Complaint Exam - Trauma Complaint/Exam Location of Pain or Injury: Reports: RUE (shoulder right right knee ) Mechanism of Injury: Reports: Fall (the dog caused the fall pt did fall on the right shoulder and knee) Onset/Duration: 1 hr Symptoms Are: Still present Timing of Treatment: Immediate Initial Severity: Moderate Current Severity: Moderate Character: Reports: Aching Alleviating: Reports: Rest, Immobilization Associated Signs and Symptoms: Denies: LOC, Confusion, Memory loss, Lethargy, Vomiting, Bleeding, Bruising, Swelling, Extremity disuse, Painful respiration, Hoarseness, Dysphagia, Hemoptysis, Significant blood loss Penetrating Injury Risk Factors: Reports: None Related Surgical History: Reports: None Nexus Low Risk Criteria: No post-midline CS tender, No evidence of intoxicat., No Altered LOC, No focal neuro deficit Glascow Coma Scale (see protocol): 15 Skin Findings: Present: Abrasion (rigth knee) Differential Diagnoses: Fracture, Sprain, Strain Review of Systems - Review Of Systems Constitutional: Reports: No symptoms Eyes: Reports: No symptoms Ears, Nose, Mouth, Throat: Reports: No symptoms Respiratory: Reports: No symptoms Cardiac: Reports: No symptoms GI: Reports: No symptoms : Reports: No symptoms Musculoskeletal: Reports: Joint pain (knee and shoulder ) Skin: Reports: No symptoms Neurological: Reports: No symptoms Endocrine: Reports: No symptoms Hematologic/Lymphatic: Reports: No symptoms All Other Systems: Reviewed and Negative Past Medical History - Past Medical History Endocrine: Reports: Hypothyroid Cardiovascular: Reports: Hypertension, Other (mvp) Respiratory: Reports: None Hematological: Reports: None Gastrointestinal: Reports: None Genitourinary: Reports: None Neuro/Psych: Reports: None Musculoskeletal: Reports: Arthritis Cancer: Reports: None Last Menstrual Period: N/A - Surgical History General Surgical History: Reports: Cholecystectomy ( [id number]) - Family History Family History: Reports: Unknown - Social History Smoking Status: Never smoker Hx Substance Use: No Alcohol Screening: None - Immunizations Tetanus Shot up to Date: No Physical Exam - Physical Exam Appearance: Well-appearing, No pain distress, Well-nourished Eyes: TASHA, EOMI, Conjunctiva clear ENT: Ears normal, Nose normal, Oropharynx normal Respiratory: Airway patent, Breath sounds clear, Breath sounds equal, Respirations nonlabored Cardiovascular: RRR, Pulses normal, No rub, No murmur GI/: Soft, Nontender, No masses, Bowel sounds normal, No Organomegaly Musculoskeletal: Limited ROM (right shoulder but knee is abrased and full ROM) Skin: Warm, Dry, Normal color Neurological: Sensation intact, Motor intact, Reflexes intact, Cranial nerves intact, Alert, Oriented Psychiatric: Affect appropriate, Mood appropriate Interpretation - Radiology Interpretation Radiology Interpretation By: Radiologist Radiology Results: No acute changes Critical Care Note - Critical Care Note Total Time (mins): 0 Course - Course Orders, Labs, Meds: Orders Category Date Time Status Morphine Sulfate [Morphine 4 mg/ml Syringe] MEDS 01/08/17 09:36 Discontinued 4 mg IM ONCE STA Ondansetron HCl/Pf [Zofran 4 mg/2 ml] MEDS 01/08/17 09:36 Discontinued 4 mg IM ONCE STA HUMERUS, RIGHT 2 VIEWS Stat RADS 01/08/17 09:36 Completed KNEE, RIGHT 4 VIEWS Stat RADS 01/08/17 09:35 Completed SHOULDER, RIGHT MIN 2V Stat RADS 01/08/17 09:35 Completed Medications Discontinued Medications Generic Name Dose Route Start Last Admin Trade Name Freq PRN Reason Stop Dose Admin Morphine Sulfate 4 mg 01/08/17 09:36 01/08/17 09:41 Morphine 4 Mg/Ml Syringe IM 01/08/17 09:37 4 mg ONCE STA Administration Ondansetron HCl 4 mg 01/08/17 09:36 01/08/17 09:43 Zofran 4 Mg/2 Ml IM 01/08/17 09:37 4 mg ONCE STA Administration Vital Signs: Temp Pulse Resp BP Pulse Ox 01/08/17 09:17 97.4 F L 59 L 20 142/65 H 97 Departure - Departure Time of Disposition: 10:44 (NURSING STAFF PRESENT DURING MY D/C INSTRUCTION REXAMINED PT PT STILL DENIED OTHER INJURIED OR DISCOMFORTS) Disposition: HOME SELF-CARE Discharge Problem: Humerus fracture Qualifiers: Encounter type: initial encounter Humerus Location: proximal Fracture type: closed Instructions: Scapular Fracture (ED) Condition: Good Pt referred to PMD for follow-up: Yes Additional Instructions: Please call your Family Physician as soon as possible to schedule a follow-up appointment. Allergies/Adverse Reactions: Allergies ibuprofen Adverse Reaction (Unverified 01/08/17 09:26) streptomycin Adverse Reaction (Unverified 01/08/17 09:26) Home Medications: Ambulatory Orders Amlodipine/Atorvastatin [Amlodipine-Atorvast 5-10 mg] 5 mg PO DAILY 05/07/14 Disposition Discussed With: Patient, Family
== END 2017-01-08 11:42 | disposition home or self-care (01) ==
LOC: ED 09:15
DX: T14.90 Injury, unspecified (principal); S42.254A Nondisplaced fracture of greater tuberosity of right humerus, initial encounter for closed fracture; S80.211A Abrasion, right knee, initial encounter; W01.0XXA Fall on same level from slipping, tripping and stumbling without subsequent striking against object, initial encounter
CPT/HCPCS: 96372; 99283

== ENCOUNTER 2019-04-02 13:32 | Outpatient (CLI) ==
--- NOTE | 2019-04-02 15:53 | DI ---
EXAM: Frontal chest, left ribs three views HISTORY: Pain after fall. FINDINGS: Prominent heart size. Atherosclerotic disease. There are scattered calcifications sugges ting old granulomatous disease. Lungs are free of infiltrate. No pneumothorax or pleural fluid. Clark levy reveal subtle deformity of the left lateral sixth rib which is likely related to fracture althoug h is indeterminate in age. There is deformity of the posteriolateral left fifth rib which is probabl y chronic. IMPRESSION: 1. Mild left-sided rib deformities as described of indeterminate age. 2. No pneumothorax or pleural fluid. 3. Prominent heart size and atherosclerotic disease.
== END 2019-04-02 13:33 | disposition home or self-care (01) ==
LOC: RAD 13:32
PROVIDERS: ATTEND Family Medicine
DX: R07.81 Pleurodynia (principal); W19.XXXA Unspecified fall, initial encounter